=== PATIENT | female | born 2000 | race Caucasian/White ===

== ENCOUNTER 2022-03-17 19:57 | Emergency (ER) | payer OTHER, SELFPAY ==
--- NOTE | 2022-03-17 20:03 | ED.NAVMDI ---
HPI - Nausea/Vomiting/Diarrhea General Chief complaint: Nausea/Vomiting/Diarrhea Stated complaint: Nausea Time Seen by Provider: 03/17/22 20:03 Source: patient Mode of arrival: ambulatory Limitations: no limitations History of Present Illness HPI Narrative: Marisa is a 22-year-old female patient presenting to the clinic today with complaints of nausea x3 days. She reports she has been burping a lot as well. States nausea is only at nighttime. She denies any abdomen pain. Last bowel movement was this morning and was normal for her. She denies any urinary symptoms. She is currently on her menses. She denies being sexually active. No vomiting or diarrhea. Related Data Allergies Allergy/AdvReac Type Severity Reaction Status Date / Time No Known Allergies Allergy Verified 03/17/22 20:20 Review of Systems Review of Systems: Pertinent positives per HPI. Patient denies any fever, chills, rash, headache, visual changes, dizziness, cough, runny nose, sore throat, shortness of breath, chest pain, palpitations, vomiting, diarrhea, constipation, abdominal pain, or any urinary issues. PMFSH Comments At the time of my signature, I reviewed and agree with the nursing past medical, surgical, social, and family history. There is no relevant family history pertinent to the patient complaint. Exam Narrative: General: Well-developed, well nourished, in no apparent distress. Head: Normocephalic, atraumatic. Cardio: Regular rate and rhythm, s1 and s2 normal, no murmur appreciated. Resp: Clear to auscultation bilaterally, no rhonchi, rales, wheezing or rubs. Abdomen: Soft, pliable, bowel sounds present in all quadrants, non-tender to palpation, no organomegly, no CVAT tenderness. Course Course Emergency Course: Portions of this record may have been created with voice recognition software. Level of Care: Express Care Visit Vital Signs Vital signs: Vital signs reviewed MDM - Nausea/Vomiting/Diarrhea MDM Narrative Medical decision making narrative: At the time of visit patient is resting comfortably on the exam table. Influenza testing and urinalysis was performed. Patient is currently on her menses and denies being sexually active so no test was performed. Last bowel movement was today and she has regular bowel movements daily. She denies any abdomen pain and abdomen is nondistended. I suspect patient may have constipation versus indigestion. Will send in prescription for some Zofran and discussed supportive measures. Patient voiced understanding of agrees with the treatment plan. Differential Diagnosis Differential diagnosis: Likely food poisoning, gastroenteritis and other (Acute nausea, constipation) Discharge Plan Discharge Clinical Impression: Nausea Patient Disposition: Home, Self-Care Condition: Stable Instructions: Antibiotic Form, Acute Nausea and Vomiting (ED) Additional Instructions: Influenza testing is negative in the clinic today. Urinalysis is negative for any sign of infection. Nausea could be caused from indigestion versus constipation-increase fluids and increase fiber in your diet. Avoid eating fatty, greasy, or spicy food until symptoms resolve. Take prescription medications only as prescribed-zofran Increase fluids and stay well hydrated Tylenol/motrin for pain/fever BRAT diet for diarrhea Clear liquids x 24 hours then advance as tolerated for nausea/vomiting Go to the ED if you develop a worsening in your condition- high fever not controlled by Tylenol or Motrin, dehydration, weakness, lethargy, shortness of breath, or chest pain. Follow up with your PCP in 3-5 days if symptoms persist. Prescriptions: New ondansetron 4 mg tablet,disintegrating 4 mg PO Q6H PRN (Reason: nausea and vomiting) 3 Days Qty: 12 0RF Follow-up/Referrals: UNKNOWN,DOCTOR [Non-Staff] - Time of Disposition: 20:21 Quality NIHSS Nursing Documentation ED NIHSS nursing documentati
[2022-03-17 20:07] VITALS: BP 129/89; PULSE 77; RESP 16; TEMP 36.7; O2SAT 100
== END 2022-03-17 20:27 | disposition home or self-care (01) ==
PROVIDERS: Emergency Provider Nurse Practitioner Family
DX: R11.0 Nausea (principal)
CPT/HCPCS: 81003; 87804; 99213; G0463